=== PATIENT | male | born 1955 | race Caucasian/White ===

== ENCOUNTER 2021-03-31 14:05 | Inpatient (IN) | payer MEDICARE, OTHER ==
[~2021-03-31] VITALS: Ht 170.2 cm; Wt 105.7 kg
[~2021-03-31 14:05] MED LIST: ASPIR 8181 MG PO; ASPIRIN81 MG PO; BYSTOLIC10 MG PO; COUMADIN5 MG PO; FENOFIBRATE145 MG PO; FLAGYL500 MG PO; GLYBURIDE5 MG PO; HYDROCHLOROTHIA25 MG PO; LISINOPRIL40 MG PO; METFORMIN HCL1000 MG PO; MOTRIN800 MG PO; NEXIUM40 MG PO; PRAVASTATIN SOD80 MG PO; ZOLPIDEM TARTRA10 MG PO
[2021-03-31 14:45] LABS: BASOPHILS % 0.2 % (0.0-1.0); EOSINOPHILS % 0.1 % (0.0-6.0); HEMATOCRIT 34.4 % (38.2-49.6); HEMOGLOBIN 10.9 g/dL (14.0-18.0); LYMPHOCYTES # (AUTO) 0.8 (1.0-3.2); MEAN CORPUSCULAR HEMOGLOBIN 28.3 pg (28-32); MEAN CORPUSCULAR HGB CONC 31.7 g/dL (31-35); MEAN CORPUSCULAR VOLUME 89.4 fL (81-99); MONOCYTES # (AUTO) 0.9 (0.2-0.8); MONOCYTES % 5.3 % (4.4-11.3); NEUTROPHILS # (AUTO) 14.2 (2.1-6.9); NEUTROPHILS % 88.4 % (38.7-80.0); PLATELET COUNT 255 x10e3/uL (140-360); RED BLOOD COUNT 3.85 x10e6/uL (4.3-5.7); RED CELL DISTRIBUTION WIDTH 13.9 % (11.7-14.4)
[2021-03-31 15:04] LABS: ALBUMIN 3.8 g/dL (3.5-5.0); ANION GAP 18.2 mmol/L (8-16); CALCIUM 8.9 mg/dL (8.4-10.2); CREATININE, SERUM 2.96 mg/dL (0.72-1.25); POTASSIUM 4.2 mmol/L (3.5-5.1)
[2021-03-31] MEDS ORDERED: SODIUM CHLORIDE 0.9% 1000ML 1,000 ML IV SCH (15:45)
[2021-03-31] MEDS ORDERED: CEFTRIAXONE SOD 1 GM VIAL IV ONE (15:45)
[2021-03-31] MEDS ORDERED: CEFTRIAXONE SOD 1 GM in SODIUM CHLORIDE 0.9% 50ML 50 ML IV ONE (15:45)
[2021-03-31] MEDS ORDERED: DEXTROSE 50% SYRINGE 50 ML IV STA (16:43)
[2021-03-31] MEDS ORDERED: DEXTROSE 50% SYRINGE 50 ML IV ONE (16:48)
[2021-03-31 19:14] LABS: CLARITY,URINE SL CLOUDY (CLEAR); COLOR,URINE YELLOW (YELLOW); LEUKOCYTE ESTERASE ,URINE NEGATIVE (NEGATIVE); NITRITE,URINE NEGATIVE (NEGATIVE); PROTEIN,URINE DIPSTICK >=300 (NEGATIVE)
[2021-03-31 19:15] LABS: KETONES,URINE NEGATIVE (NEGATIVE); URINE UROBILINOGEN 0.2 mg/dL (0.2 - 1)
[2021-03-31 19:32] LABS: BACTERIA,URINE RARE /HPF; WBC,URINE (MAN) 0-5 /HPF (0-5)
[2021-03-31] MEDS: SODIUM CHLORIDE 0.9% 1000ML 1,000 ML IV SCH ×2 (20:09→23:05)
[2021-03-31 22:30] VITALS: BP 162/84
[2021-04-01] VITALS (9 sets, daily range): BP systolic 147–187; BP diastolic 75–97
[2021-04-01 00:11] LABS: CREATINE KINASE MB 8.6 ng/mL (0-5.0)
[2021-04-01 04:45] LABS: BASOPHILS % 0.3 % (0.0-1.0); EOSINOPHILS # (AUTO) 0.1 (0.0-0.4); EOSINOPHILS % 0.9 % (0.0-6.0); HEMOGLOBIN 9.6 g/dL (14.0-18.0); LYMPHOCYTES # (AUTO) 1.1 (1.0-3.2); MEAN CORPUSCULAR HEMOGLOBIN 28.2 pg (28-32); MEAN CORPUSCULAR VOLUME 88.2 fL (81-99); MONOCYTES # (AUTO) 0.8 (0.2-0.8); MONOCYTES % 9.1 % (4.4-11.3); NEUTROPHILS # (AUTO) 7.1 (2.1-6.9); NEUTROPHILS % 77.3 % (38.7-80.0); PLATELET COUNT 194 x10e3/uL (140-360); RED CELL DISTRIBUTION WIDTH 13.9 % (11.7-14.4)
[2021-04-01 05:06] LABS: ANION GAP 15.8 mmol/L (8-16); CALCIUM 8.5 mg/dL (8.4-10.2); CREATININE, SERUM 2.9 mg/dL (0.72-1.25); POTASSIUM 3.8 mmol/L (3.5-5.1)
[2021-04-01 05:29] LABS: INR 1.05; PROTHROMBIN TIME 14.3 seconds (11.9-14.5)
[2021-04-01] MEDS: SODIUM CHLORIDE 0.9% 1000ML 1,000 ML IV SCH (08:15)
[2021-04-01] MEDS: ASPIRIN 81 MG CHEW TAB PO SCH (08:21)
[2021-04-01] MEDS: FENOFIBRATE 145 MG TAB PO SCH (08:21)
[2021-04-01] MEDS: PRAVASTATIN 20 MG TAB PO SCH (08:21)
[2021-04-01] MEDS: NEBIVOLOL 10 MG TAB PO SCH ×2 (08:21→18:43)
[2021-04-01 08:35] LABS: CREATINE KINASE MB 5.4 ng/mL (0-5.0)
[2021-04-01] MEDS: HYDRALAZINE HCL 25 MG TAB PO SCH ×2 (12:12→21:09)
[2021-04-01] MEDS ORDERED: DEXTROSE 50% SYRINGE 50 ML IV PRN (20:15)
[2021-04-01] MEDS: INSULIN REGULAR, HUMAN 100 UNIT/1 ML 3ML VIAL SQ SCH (21:07)
[2021-04-01] MEDS: WARFARIN SOD 5 MG TAB PO SCH (21:08)
[2021-04-02] VITALS (11 sets, daily range): BP systolic 126–163; BP diastolic 66–92
[2021-04-02] MEDS ORDERED: CLONIDINE HCL 0.1 MG TAB PO PRN (04:30)
[2021-04-02 04:44] LABS: BASOPHILS # (AUTO) 0.1 (0.0-0.1); BASOPHILS % 0.9 % (0.0-1.0); EOSINOPHILS # (AUTO) 0.2 (0.0-0.4); EOSINOPHILS % 3.2 % (0.0-6.0); HEMATOCRIT 30.7 % (38.2-49.6); HEMOGLOBIN 9.5 g/dL (14.0-18.0); LYMPHOCYTES # (AUTO) 1.4 (1.0-3.2); LYMPHOCYTES % 21.7 % (18.0-39.1); MEAN CORPUSCULAR HEMOGLOBIN 27.7 pg (28-32); MEAN CORPUSCULAR HGB CONC 30.9 g/dL (31-35); MEAN CORPUSCULAR VOLUME 89.5 fL (81-99); MONOCYTES # (AUTO) 0.8 (0.2-0.8); MONOCYTES % 11.5 % (4.4-11.3); NEUTROPHILS % 61.6 % (38.7-80.0); PLATELET COUNT 168 x10e3/uL (140-360); RED BLOOD COUNT 3.43 x10e6/uL (4.3-5.7); RED CELL DISTRIBUTION WIDTH 13.9 % (11.7-14.4)
[2021-04-02 05:01] LABS: ALBUMIN 3.1 g/dL (3.5-5.0); ALBUMIN/GLOBULIN RATIO 0.9 (0.8-2.0); ANION GAP 13.8 mmol/L (8-16); CALCIUM 8.5 mg/dL (8.4-10.2); CREATININE, SERUM 2.76 mg/dL (0.72-1.25); POTASSIUM 3.8 mmol/L (3.5-5.1)
[2021-04-02] MEDS: INSULIN REGULAR, HUMAN 100 UNIT/1 ML 3ML VIAL SQ SCH ×4 (07:30→21:18)
[2021-04-02] MEDS: FENOFIBRATE 145 MG TAB PO SCH (08:42)
[2021-04-02] MEDS: HYDRALAZINE HCL 25 MG TAB PO SCH ×3 (08:42→21:36)
[2021-04-02] MEDS: PRAVASTATIN 20 MG TAB PO SCH (08:42)
[2021-04-02] MEDS: NEBIVOLOL 10 MG TAB PO SCH ×2 (08:42→16:19)
[2021-04-02] MEDS: ASPIRIN 81 MG CHEW TAB PO SCH (08:42)
[2021-04-02] MEDS: WARFARIN SOD 5 MG TAB PO SCH (21:37)
[2021-04-03] VITALS (10 sets, daily range): BP systolic 142–160; BP diastolic 69–93
[2021-04-03] MEDS: ASPIRIN 81 MG CHEW TAB PO SCH (09:17)
[2021-04-03] MEDS: NEBIVOLOL 10 MG TAB PO SCH ×2 (09:17→17:58)
[2021-04-03] MEDS: HYDRALAZINE HCL 25 MG TAB PO SCH ×3 (09:17→21:18)
[2021-04-03] MEDS: FENOFIBRATE 145 MG TAB PO SCH (09:18)
[2021-04-03] MEDS: INSULIN REGULAR, HUMAN 100 UNIT/1 ML 3ML VIAL SQ SCH ×4 (09:36→21:19)
[2021-04-03] MEDS: WARFARIN SOD 5 MG TAB PO SCH (21:18)
[2021-04-03] MEDS: PRAVASTATIN 20 MG TAB PO SCH (21:18)
[2021-04-03] MEDS: ZOLPIDEM TARTRATE 5 MG TAB PO PRN (21:40)
[2021-04-04] VITALS (11 sets, daily range): BP systolic 128–157; BP diastolic 63–81
[2021-04-04 06:51] LABS: INR 1.07; PROTHROMBIN TIME 14.5 seconds (11.9-14.5)
[2021-04-04 07:36] LABS: ANION GAP 16.1 mmol/L (8-16); CALCIUM 8.5 mg/dL (8.4-10.2); CREATININE, SERUM 2.57 mg/dL (0.72-1.25); POTASSIUM 4.1 mmol/L (3.5-5.1)
[2021-04-04] MEDS: FENOFIBRATE 145 MG TAB PO SCH (08:15)
[2021-04-04] MEDS: ASPIRIN 81 MG CHEW TAB PO SCH (08:16)
[2021-04-04] MEDS: HYDRALAZINE HCL 25 MG TAB PO SCH ×3 (08:16→20:42)
[2021-04-04] MEDS: NEBIVOLOL 10 MG TAB PO SCH ×2 (08:17→16:18)
[2021-04-04] MEDS: INSULIN REGULAR, HUMAN 100 UNIT/1 ML 3ML VIAL SQ SCH ×4 (08:19→20:43)
[2021-04-04] MEDS ORDERED: FUROSEMIDE 20 MG TAB PO NR (15:45)
[2021-04-04] MEDS: WARFARIN SOD 5 MG TAB PO SCH (20:42)
[2021-04-04] MEDS: PRAVASTATIN 20 MG TAB PO SCH (20:43)
[2021-04-05] VITALS (9 sets, daily range): BP systolic 144–172; BP diastolic 62–89
[2021-04-05 07:29] LABS: ANION GAP 14.9 mmol/L (8-16); CALCIUM 8.5 mg/dL (8.4-10.2); CREATININE, SERUM 2.74 mg/dL (0.72-1.25); POTASSIUM 3.9 mmol/L (3.5-5.1)
[2021-04-05] MEDS: INSULIN REGULAR, HUMAN 100 UNIT/1 ML 3ML VIAL SQ SCH ×4 (07:30→21:34)
[2021-04-05] MEDS: HYDRALAZINE HCL 25 MG TAB PO SCH ×3 (08:15→21:33)
[2021-04-05] MEDS: NEBIVOLOL 10 MG TAB PO SCH ×2 (08:16→18:35)
[2021-04-05] MEDS: ASPIRIN 81 MG CHEW TAB PO SCH (08:16)
[2021-04-05] MEDS: FENOFIBRATE 145 MG TAB PO SCH (08:16)
[2021-04-05] MEDS: PRAVASTATIN 20 MG TAB PO SCH (21:33)
[2021-04-05] MEDS: WARFARIN SOD 5 MG TAB PO SCH (21:33)
[2021-04-05] MEDS: ZOLPIDEM TARTRATE 5 MG TAB PO PRN (21:35)
[2021-04-06] VITALS: BP 149/76
[2021-04-06 04:00] VITALS: BP 149/74
[2021-04-06 08:01] VITALS: BP 144/91
[2021-04-06] MEDS: NEBIVOLOL 10 MG TAB PO SCH ×2 (08:03→16:07)
[2021-04-06] MEDS: ASPIRIN 81 MG CHEW TAB PO SCH (08:03)
[2021-04-06] MEDS: FENOFIBRATE 145 MG TAB PO SCH (08:03)
[2021-04-06] MEDS: HYDRALAZINE HCL 25 MG TAB PO SCH ×2 (08:03→16:00)
[2021-04-06 08:07] VITALS: BP 144/91
[2021-04-06] MEDS: INSULIN REGULAR, HUMAN 100 UNIT/1 ML 3ML VIAL SQ SCH ×3 (08:09→16:14)
[2021-04-06 11:02] VITALS: BP 170/80
[2021-04-06 15:05] VITALS: BP 170/79
== END 2021-04-06 17:58 | disposition home or self-care (01) | DRG 637 ==
LOC: ER 14:52 → ERHOLD 16:49 → IMCU 22:22 → MED/SURG 04-02 05:06
PROVIDERS: ADMIT Internal Medicine; ATTEND Internal Medicine
DX: E11.649 Type 2 diabetes mellitus with hypoglycemia without coma (principal); G93.41 Metabolic encephalopathy; N17.9 Acute kidney failure, unspecified; E78.5 Hyperlipidemia, unspecified; E66.9 Obesity, unspecified; D64.9 Anemia, unspecified; E11.22 Type 2 diabetes mellitus with diabetic chronic kidney disease; I12.9 Hypertensive chronic kidney disease with stage 1 through stage 4 chronic kidney disease, or unspecified chronic kidney disease; N18.30 Chronic kidney disease, stage 3 unspecified; Z82.49 Family history of ischemic heart disease and other diseases of the circulatory system; Z68.36 Body mass index [BMI] 36.0-36.9, adult; Z88.5 Allergy status to narcotic agent; Z88.8 Allergy status to other drugs, medicaments and biological substances; Z87.442 Personal history of urinary calculi; D63.1 Anemia in chronic kidney disease
CPT/HCPCS: 36415; 71045; 80048; 80053; 81001; 82550; 82553; 82948; 83735; 83880; 84484; 85025; 85610; 87086; 93005; 96372; 99284; J0696; J1817; J7030; J7799; U0002